=== PATIENT | male | born 1975 | race Caucasian/White ===

== ENCOUNTER 2017-05-16 12:10 | Emergency (ER) | payer BC, MEDICARE, MEDICAID ==
[2017-05-16] MEDS ORDERED: Diph,Pert(Acell),Tet Vac 0.5 ML SYR IM ONE (12:38)
--- NOTE | 2017-05-16 12:38 | Emergency Department Record ---
History of Present Illness - General Chief Complaint: Laceration(s) Stated Complaint: FINGER LACERATION Time Seen by Provider: 05/16/17 12:26 Source: Patient, RN notes reviewed Mode of Arrival: Ambulatory - History of Present Illness Initial Commments: laceration of the left index finger at home with his pocket knife. On coumadin atrial fib. Onset/Timin -: Minutes(s) Place: Home - [place] Coma Scale Eye Response: (4) Open spontaneously Motor Response: (6) Obeys commands Verbal Response: (5) Oriented [place] Total: 15 - Related Data Previous Rx's Medication Instructions Recorded Ondansetron [Zofran Odt] 4 mg PO Q6H #20 tab.rapdis 09/16/15 Allergies Allergy/AdvReac Type Severity Reaction Status Date / Time magnesium Allergy PT UNSURE Verified 05/16/17 12:18 OF REACTION Sulfa (Sulfonamide Allergy RASH Verified 05/16/17 12:18 Antibiotics) Travel Screening - Travel/Exposure Within Last 30 Days Have you traveled within the last 30 days?: No - Travel/Exposure Within Last Year Have you traveled outside the [place] in the last year?: No - Additonal Travel Details Have you been exposed to anyone with a communicable illness?: No - Travel Symptoms Symptom Screening: None Review of Systems Reviewed: No additional complaints except as noted below Constitutional: Reports: As per HPI. Denies: Chills, Fever, Malaise, Night sweats, Weakness, Weight change Eyes: Reports: As per HPI. Denies: Eye discharge, Eye pain, Photophobia, Vision change ENT: Reports: As per HPI. Denies: Congestion, Dental pain, Ear pain, Epistaxis , Hearing loss, Throat pain Respiratory: Reports: As per HPI. Denies: Cough, Dyspnea, Hemoptysis, Stridor, Wheezes Cardiovascular: Reports: As per HPI. Denies: Arrhythmia, Chest pain, Dyspnea on exertion, Edema, Murmurs, Orthopnea, Palpitations, Paroxysmal nocturnal dyspnea, Rheumatic Fever, Syncope Endocrine: Reports: As per HPI. Denies: Fatigue, Heat or cold intolerance, Polydipsia, Polyuria Gastrointestinal: Reports: As per HPI. Denies: Abdominal pain, Constipation, Diarrhea, Hematemesis, Hematochezia, Melena, Nausea, Vomiting Genitourinary: Reports: As per HPI. Denies: Dysuria, Frequency, Hematuria, Incontinence, Retention, Testicular pain, Testicular mass, Urgency Musculoskeletal: Reports: As per HPI. Denies: Arthralgia, Back pain, Gout, Joint swelling, Myalgia, Neck pain Skin: Reports: As per HPI. Denies: Bruising, Change in color, Change in hair/ nails, Lesions, Pruritus, Rash Neurological: Reports: As per HPI. Denies: Abnormal gait, Confusion, Headache, Numbness, Paresthesias, Seizure, Tingling, Tremors, Vertigo, Weakness Psychiatric: Reports: As per HPI. Denies: Anxiety, Auditory hallucinations, Depression, Homicidal thoughts, Suicidal thoughts, Visual hallucinations Hematological/Lymphatic: Reports: As per HPI. 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" - NEURO Hx Neuro Disorders: No - GI Hx GI Disorders: No - Hx Genitourinary Disorders: No - ENDOCRINE Hx Endocrine Disorders: No - MUSCULOSKELETAL Hx Musculoskeletal Disorders: No - PSYCH Hx Psych Problems: No - HEMATOLOGY/ONCOLOGY Hx Hematology/Oncology Disorders: No Family Medical History Any Significant Family History?: Yes Physical Exam - General General Appearance: Alert, Oriented x3, Cooperative, No acute distress - Head Head exam: Normal inspection - Eye Eye exam: Normal appearance, PERRL Pupils: Normal accommodation - ENT ENT exam: Normal exam, Mucous membranes moist, Normal external ear exam, Normal orophraynx, TM's normal bilaterally Ear exam: Normal external inspection. negative: External canal tenderness Nasal Exam: Normal inspection. negative: Discharge, Sinus tenderness Mouth exam: Normal external inspection, Tongue normal Teeth exam: Normal inspection. negative: Dental caries Throat exam: Normal inspection. negative: Tonsillar erythema, Tonsillar exudate - Neck Neck exam: Normal inspection, Full ROM. negative: Tenderness - Respiratory Respiratory exam: Normal lung sounds bilaterally. negative: Respiratory distress - Cardiovascular Cardiovascular Exam: Regular rate, Normal rhythm, Normal heart sounds - GI/Abdominal GI/Abdominal exam: Soft, Normal bowel sounds. negative: Tenderness - Rectal Rectal exam: Deferred - exam: Deferred - Extremities Extremities exam: Normal inspection, Full ROM, Normal capillary refill. negative: Tenderness - Back Back exam: Reports: Normal inspection, Full ROM. Denies: Muscle spasm, Rash noted, Tenderness - Neurological Neurological exam: Alert, Normal gait, Oriented X3, Reflexes normal - Psychiatric Psychiatric exam: Normal affect, Normal mood - Skin Skin exam: Other (lacerat) Course Vital Signs 05/16/17 12:14 Temperature 97.7 F Pulse Rate 79 Respiratory 20 Rate Blood Pressure 132/91 Pulse Ox 96 - Reevaluation(s) Reevaluation #1: 1% lidocaine cleaned with surclens 5.0 ethilon times three sutures 05/16/17 12:27 05/16/17 12:41 Disposition Clinical Impression: Laceration of finger Qualifiers: Encounter type: initial encounter Finger: index finger Damage to nail status: without damage Foreign body presence: without foreign body Laterality: left Qualified Code(s): S61.211A - Laceration without foreign body of left index finger without damage to nail, initial encounter Disposition: Home, Self-Care Condition: (1) Good Instructions: Laceration (ED) Additional Instructions: sutures out in 10 days Time of Disposition: 12:41 Quality - Quality Measures Quality Measures: N/A - Blood Pressure Screening Does Patient Have Any of the Following: No Blood Pressure Classification: Hypertensive Reading Systolic Measurement: 132 Diastolic Measurement: 91 Screening for High Blood Pressure: < Pre-Hypertensive BP, F/U Documented > [ [id number]] Pre-Hypertensive Follow-up Interventions: Referral to alternative/primary care provider.
== END 2017-05-16 13:06 | disposition home or self-care (01) ==
LOC: ER 12:10
DX: S61.217A Laceration without foreign body of left little finger without damage to nail, initial encounter (principal); W26.0XXA Contact with knife, initial encounter; Y92.009 Unspecified place in unspecified non-institutional (private) residence as the place of occurrence of the external cause; I48.2 Chronic atrial fibrillation; Z79.01 Long term (current) use of anticoagulants
CPT/HCPCS: 12001; 90715; 96372; 99283